=== PATIENT | male | born 1960 | race Caucasian/White ===

== ENCOUNTER → 2017-10-27 | Day surgery (SDC) | payer BC ==
[~2017-10-27] MED LIST: 1-ME1LIQ PO; ACET325S8 PO; BUPIVACAINE/EPINEPHRINE 0.25% PF 30 ML VIAL ONE; GLIP5 PO; KETOROLAC TROMETHAMINE 60 MG/2 ML (IM) VIAL IM ONE; LACTATED RINGER'S 1000 ML INJ 1,000 ML ONE; LORTA5 PO; MEPERIDINE HCL 50 MG/ML VIAL ONE; MIDAZOLAM HCL 2 MG/2 ML VIAL ONE; MORPHINE SULFATE 4 MG/ML INJ ONE; ONDANSETRON HCL 4 MG/2 ML VIAL IV PUSH ONE; PRIL20CA PO; PROPOFOL 200 MG/20 ML AMP IV ONE; SODIUM CHLOR 0.9% 250 ML BAG IV ONE; VANCOMYCIN HCL 1000 MG VIAL ONE; oxyCODONE/ACETAMINOPHEN 5 MG/325 MG TAB ONE
--- NOTE | 2017-10-28 16:36 | MP ---
cc: Piotr Graham MD DATE OF OPERATION: 10/27/2017 DATE: 10/27/2017. PREOPERATIVE DIAGNOSIS: Left inguinal hernia, left groin pain. POSTOPERATIVE DIAGNOSIS: Direct left inguinal hernia. SURGEON: Piotr Graham MD PROCEDURE PERFORMED: Laparoscopic left inguinal hernia repair with mesh, transabdominal preperitoneal repair (JERAMY). ANESTHESIA: GETA. IV FLUIDS: See anesthesia record sheet. ESTIMATED BLOOD LOSS: 5 mL. DRAINS: None. COMPLICATIONS: None. WOUND CLASSIFICATION: Clean. SPECIMENS: None. FINDINGS: Direct hernia left inguinal space. No evidence of hernia in the right inguinal space as viewed intraabdominally. INDICATIONS: The patient is a 57-year-old male who presents with acute onset of left groin pain. He states the pain had been present for several months. He had a history of varicocele repair in the past and presented with a hernia. On exam, he was noted to have a hernia. Therefore, decision was made for laparoscopic hernia repair. The patient was taken to the operating suite, placed in supine position. He was prepped and draped in the usual sterile fashion after induction of general endotracheal anesthesia. Brief timeout was done to include the correct patient, procedure, surgical site; we were all in agreement with this. Attention was first directed to the umbilicus where a curvilinear subumbilical incision was made after injection of local anesthetic. Dissection was done to the anterior rectus and anterior rectus fascia. An S retractor and hemostat were used to do this. A small ti incision was made in the anterior abdominal fascia and retraction of the rectus muscle was done. Attempts were made to get into the preperitoneal plane, were difficult due to previous surgery and varicocele repair. A balloon trocar was placed intraabdominally and abdomen insufflated to 15 mm pneumoperitoneum. The patient was placed in Trendelenburg position and airplaned to the left. Two other ports were placed, two 5 mm, one in the right lower quadrant and one in the left lower quadrant. The 5 mm trocars were placed after injection of local anesthetic and under direct visualization. On examination, there was noted to be a direct hernia in the left inguinal area. There was no evidence of indirect inguinal hernias and the right side did not show any evidence of inguinal hernia. Using electro Bovie cautery and EndoShears, the peritoneum was incised medially going to laterally just superior to the inguinal ring and the inguinal canal. Blunt dissection was used to create peritoneal flaps both inferiorly and superiorly. The flaps were done and dissection down to the pubic tubercle medially in the space of Retzius was dissected. This was done in order to dissect out the appropriate area for mesh placement. Again, cord structures were noted to be intact. The vas was identified. The adequate space was again identified including the femoral, internal, indirect and direct spaces with again only noting the indirect space on the left to have the presence of hernia. A flap was also raised superior as well protecting the superficial epigastrics. Once the appropriate dissection was done, mesh was obtained. A 6 x 6 Atrium mesh was cut, approximately to a 3 x 6 size. This was entered into the umbilical port and placed within the preperitoneal area. This was tacked in place to the pubic tubercle, superior and lateral in order to completely secure in place the mesh. Next, the peritoneum was closed with a running 2-0 Vicryl suture. Next, local anesthetic was injected prior to closure completely of the peritoneum. Pneumoperitoneum was desufflated. The ports were removed. The 12 mm umbilical port was closed with a 0 Vicryl on a UR-6, local anesthetic injected. 4-0 Monocryl was used to close all port sites. Sterile dressings, including Steri-Strips were placed. The testicle was then placed on some traction in order to make sure it was anatomical in the scrotum. The patient tolerated the procedure well. There was no intraoperative complications. All lap and instrument counts were correct at the end of procedure. The patient was extubated and taken stable to the PACU. MD RAYMUNDO Ramos/RAH , 04:06 PM , 04:35 PM
== END | disposition home or self-care (01) ==
LOC: ESDC 11:55
PROVIDERS: ATTEND Surgery
DX: K40.90 Unilateral inguinal hernia, without obstruction or gangrene, not specified as recurrent (principal)
CPT/HCPCS: 00840; 49650; C1727; C1781; J1885; J2175; J2250; J2270; J2405; J3010; J3370; J7050; J7120